=== PATIENT | female | born 1985 | race Caucasian/White ===

== ENCOUNTER 2018-12-17 16:32 | Emergency (ER) | payer OTHER ==
--- NOTE | 2018-12-17 19:08 | EDM.PDOC ---
ED HPI GENERAL MEDICAL PROBLEM - General Chief Complaint: Genitourinary Problem Stated Complaint: GENITOURINARY PROBLEM Time Seen by Provider: 12/17/18 17:36 Source of Information: Reports: Patient, RN Notes Reviewed - History of Present Illness INITIAL COMMENTS - FREE TEXT/NARRATIVE: 33-year-old female approximately 8 weeks has been sent here from [facility] for further evaluation of pelvic discomfort, pelvic discharge that started quite a few days ago. She was evaluated 2 days ago, diagnosed with UTI, started on Macrobid but not getting better. She returned to [facility] for follow-up today. Was found to have vaginal discharge, some visible lesions and pelvic adenopathy. No vaginal bleeding or spotting. She has had some dysuria and frequency. No fever, nausea, vomiting or severe back discomfort. Vaginal Pain Score (Numeric/FACES): 7 - Related Data Allergies Allergy/AdvReac Type Severity Reaction Status Date / Time No Known Allergies Allergy Verified 12/17/18 16:53 Home Meds: Home Meds 147/Iron/Folic Acid [Azesco Tablet] 1 tab PO DAILY 12/17/18 [History] cephALEXin [Keflex] 250 mg PO BID 12/17/18 [History] Past Medical History - Past Health History Medical/Surgical History: Denies Medical/Surgical History Social & Family History - Family History Family Medical History: Noncontributory - Tobacco Use Smoking Status *Q: Never Smoker Second Hand Smoke Exposure: No - Caffeine Use Caffeine Use: Reports: None - Recreational Drug Use Recreational Drug Use: No ED ROS GENERAL - Review of Systems Review Of Systems: See Below Constitutional: Denies: Fever, Chills HEENT: Reports: No Symptoms Respiratory: Denies: Shortness of Breath, Cough Cardiovascular: Denies: Chest Pain GI/Abdominal: Reports: Nausea. Denies: Abdominal Pain, Vomiting : Reports: Discharge, Dysuria, Frequency, Pain. Denies: Hematuria Musculoskeletal: Denies: Back Pain Skin: Denies: Rash Neurological: Reports: No Symptoms ED EXAM, RENAL/ - Physical Exam Exam: See Below General Appearance: Alert, No Apparent Distress Eye Exam: Bilateral Eye: PERRL Throat/Mouth: Normal Inspection, Normal Oropharynx Head: Atraumatic. No: Facial Swelling Neck: Supple, Full Range of Motion Respiratory/Chest: No Respiratory Distress, Lungs Clear, Normal Breath Sounds Cardiovascular: Regular Rate, Rhythm GI/Abdominal: Soft, Non-Tender Extremities: Normal Inspection, Normal Range of Motion. No: Pedal Edema, Leg Pain, Redness Neurological: Alert, Oriented, No Motor/Sensory Deficits Skin Exam: Warm, Dry, Normal Color Course - Vital Signs Last Recorded V/S: Last Vital Signs Temp 99.1 F 12/17/18 16:46 Pulse 85 12/17/18 16:46 Resp 16 12/17/18 16:46 BP 117/80 12/17/18 16:46 Pulse Ox 100 12/17/18 16:46 - Orders/Labs/Meds Labs: Laboratory Tests 12/17/18 12/17/18 12/17/18 Range/Units 17:50 17:50 18:11 Sodium 140 (136-145) mEq/L Potassium 3.7 (3.5-5.1) mEq/L Chloride 104 (98-107) mEq/L Carbon Dioxide 23 (21-32) mEq/L Anion Gap 16.7 H (5-15) BUN 9 (7-18) mg/dL Creatinine 0.7 (0.55-1.02) mg/dL Est Cr Clr Drug Dosing TNP Estimated GFR (MDRD) > 60 (>60) mL/min BUN/Creatinine Ratio 12.9 L (14-18) Glucose 138 H (74-106) mg/dL Calcium 8.6 (8.5-10.1) mg/dL Total Bilirubin 0.2 (0.2-1.0) mg/dL AST 11 L (15-37) U/L ALT 14 (14-59) U/L Alkaline Phosphatase 82 (46-116) U/L C-Reactive Protein 1.7 H* (<1.0) mg/dL Total Protein 7.1 (6.4-8.2) g/dl Albumin 3.2 L (3.4-5.0) g/dl Globulin 3.9 gm/dL Albumin/Globulin Ratio 0.8 L (1-2) Urine Color Light yellow (Yellow) Urine Appearance Clear (Clear) Urine pH 6.0 (5.0-8.0) Ur Specific [place] 1.015 (1.005-1.030) Urine Protein Negative (Negative) Urine Glucose (UA) Negative (Negative) Urine Ketones Negative (Negative) Urine Occult Blood Trace-lysed H (Negative) Urine Nitrite Negative (Negative) Urine Bilirubin Negative (Negative) Urine Urobilinogen 0.2 (0.2-1.0) Ur Leukocyte Esterase 2+ H (Negative) Urine RBC 5-10 H (0-5) /hpf Urine WBC 30-40 H (0-5) /hpf Ur Squamous Epith Cells 5-10 H (0-5) /hpf Urine Bacteria Few (FEW) /hpf Urine Mucus Not seen (FEW) /hpf - Re-Assessments/Exams Free Text/Narrative Re-Assessment/Exam: 12/17/18 19:[address] Medrano. Her Ua this evening is very strongly positive for UTI. WBC at clinic 9200. Testing for Chlamydia, GC, herpes and more pending per documentation from clinic. He is currently evaluating patient here in the ED and will provide a treatment plan based on his exam, further findings. 12/17/18.. 20:40 Dr Medrano has related that her lesions strongly look like herpes, current UA very suggestive for UTI, he is going to prescribe appropriate meds. Urine culture ordered. Departure - Departure Time of Disposition: 19:59 Disposition: Home, Self-Care 01 Condition: Fair Clinical Impression: UTI, Urinary tract infectious disease, Herpes genitalia - Discharge Information Instructions: Urinary Tract Infection, Adult, Genital Herpes Referrals: Ambar Taylor MD [Primary Care Provider] - Forms: ED Department Discharge Additional Instructions: Take medications as prescribed. These were sent to [facility] in [place]. Return to ER or follow-up OBGYN if you experience worsening symptoms.
--- NOTE | 2018-12-17 20:45 | PCM.CONS ---
H&P History of Present Illness - General Date of Service: 12/17/18 Admit Problem/Dx: 1. Genital lesions 2. First trimester Source of Information: Patient History Limitations: Reports: No Limitations - History of Present Illness Initial Comments - Free Text/Narative: Renata is a 33-year-old 3 now para 1103 white female who is seen in emergency room after referral by a PA at [facility] for evaluation and recommendations concerning vaginal discharge and vaginal/vulvar lesions. Patient reports her symptomatology started approximately a week ago when she felt swollen glands and symptoms of a yeast infection. East infection symptoms were increased vaginal discharge and moistness in the area of the vulva. Proxy 4 days ago painful sores appeared on the vulva and patient noted swollen glands in the area of her inguinal region. She also noticed frequency and dysuria. Last symptoms of nausea but no emesis and breast tenderness. 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 Duration 3-5 days. No control being used at time conception. This places her at 7 and 57 weeks gestational age with final KAROL of 07/31/2019. She is not had any previous obstetric evaluation with this . She has not had any ultrasounds with this . She's had 2 vaginal deliveries first was a female now age 6 and then she had twin boys now age 4. Allergies none Medications: 1. vitamins daily 2. Macrobid 1 by mouth twice a day for urinary tract infection diagnosed at walk -in clinic at [place] 2 days ago. Past medical history: 1. Vaginal delivery 2 with one being a set of twins 2. HEELP syndrome with first Past surgical history: Unremarkable Family history. Mother and father are alive. Father has had prostate cancer. One sister and brother alive and well. All grandparents are . One grandfather had colon cancer. No anesthesia, bleeding, blood clotting or -related problems noted. Social history: Patient is . She lives in [place], [place]. 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 She does not use any significant loss of alcohol, drugs or tobacco. Review of systems: Patient is to maintain concerns. One is lesions in the area of the vulva/vagina and the others vaginal discharge. In addition that she does report she is . Skin: Negative Lungs: No infectious symptoms or shortness of breath Cardiovascular: No chest pain or exercise intolerance Breasts: Breast tenderness associated with . GI: Negative : As per history of present illness Musculoskeletal: Negative Neurological: Negative In general the patient is well-developed, well-nourished, pleasant female of stated age in no acute distress. Skin is warm dry without lesions. HEENT, neck and back within normal limits. Lungs are clear with good breath sounds in all lung hunt. Cardiovascular exam shows regular and rhythm without murmurs. Breasts exam deferred as patient has no significant symptoms referable to this area Abdomen is flat, soft, nontender without masses or organomegaly. Positive bowel sounds are noted. Patient does have bilateral inguinal lymphadenopathy. Lymph nodes are enlarged and are very tender with palpation. Genital per speculum and bimanual shows very moist epithelium involving the labia minora and majora. Patient has many excoriated, umbilicated lesions especially on the right vulvar area involving the labia majora labia minora, also the perineal body and the perirectal area. Findings are most probably consistent with primary HSV infection. Swab of the lesions was obtained for HSV evaluation. A speculum exam shows cervix to be closed. There is essentially normal-appearing secretions in the vagina. Bimanual exam shows uterus to be approximately 8 weeks size. Previously GC, Chlamydia, wet prep were performed at [facility] Extremities and neurological exam are grossly within normal limits. Vaginal Pain Score (Numeric/FACES): 7 - Related Data Allergies/Adverse Reactions: Allergies Allergy/AdvReac Type Severity Reaction Status Date / Time No Known Allergies Allergy Verified 12/17/18 16:53 Home Medications: Home Meds 147/Iron/Folic Acid [Azesco Tablet] 1 tab PO DAILY 12/17/18 [History] cephALEXin [Keflex] 250 mg PO BID 12/17/18 [History] Past Medical History - Past Health History Medical/Surgical History: Denies Medical/Surgical History Social & Family History - Family History Family Medical History: Noncontributory - Tobacco Use Smoking Status *Q: Never Smoker Second Hand Smoke Exposure: No - Caffeine Use Caffeine Use: Reports: None - Recreational Drug Use Recreational Drug Use: No H&P Review of Systems - Review of Systems: Review Of Systems: See Below Exam - Exam Exam: See Below - Vital Signs Vital Signs: Last Vital Signs Temp 37.3 C 12/17/18 16:46 Pulse 85 12/17/18 16:46 Resp 16 12/17/18 16:46 BP 117/80 12/17/18 16:46 Pulse Ox 100 12/17/18 16:46 - Patient Data Lab Results Last 24 hrs: Laboratory Results - last 24 hr 12/17/18 12/17/18 12/17/18 Range/Units 17:50 17:50 18:11 Sodium 140 (136-145) mEq/L Potassium 3.7 (3.5-5.1) mEq/L Chloride 104 (98-107) mEq/L Carbon Dioxide 23 (21-32) mEq/L Anion Gap 16.7 H (5-15) BUN 9 (7-18) mg/dL Creatinine 0.7 (0.55-1.02) mg/dL Est Cr Clr Drug Dosing TNP Estimated GFR (MDRD) > 60 (>60) mL/min BUN/Creatinine Ratio 12.9 L (14-18) Glucose 138 H (74-106) mg/dL Calcium 8.6 (8.5-10.1) mg/dL Total Bilirubin 0.2 (0.2-1.0) mg/dL AST 11 L (15-37) U/L ALT 14 (14-59) U/L Alkaline Phosphatase 82 (46-116) U/L C-Reactive Protein 1.7 H* (<1.0) mg/dL Total Protein 7.1 (6.4-8.2) g/dl Albumin 3.2 L (3.4-5.0) g/dl Globulin 3.9 gm/dL Albumin/Globulin Ratio 0.8 L (1-2) Urine Color Light yellow (Yellow) Urine Appearance Clear (Clear) Urine pH 6.0 (5.0-8.0) Ur Specific [place] 1.015 (1.005-1.030) Urine Protein Negative (Negative) Urine Glucose (UA) Negative (Negative) Urine Ketones Negative (Negative) Urine Occult Blood Trace-lysed H (Negative) Urine Nitrite Negative (Negative) Urine Bilirubin Negative (Negative) Urine Urobilinogen 0.2 (0.2-1.0) Ur Leukocyte Esterase 2+ H (Negative) Urine RBC 5-10 H (0-5) /hpf Urine WBC 30-40 H (0-5) /hpf Ur Squamous Epith Cells 5-10 H (0-5) /hpf Urine Bacteria Few (FEW) /hpf Urine Mucus Not seen (FEW) /hpf Result Diagrams: 12/17/18 17:50 Consult PN Assessment/Plan Problem List Initiated/Reviewed/Updated: Yes My Orders Last 24 Hours: My Active Orders 12/17/18 19:55 CULTURE HERPES SIMPLEX VIRUS [MREF] Routine Assessment: 1. 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 Culture is pending 2. Urinary tract infectionno improvement urinalysis in the last 2 days despite Macrobid therapy 3. Multiple STI tests pending. 4. Reported intrauterine , not confirmed at this time. [place] to be 8-9 weeks gestation by certain LMP 5. History of HEELP syndrome with first . History of twins with second . Plan: 1. Acyclovir 400 mg by mouth 3 times a day 7 days. Quantity 21 refill 2 2. Lidocaine 5% gel reapplied up to every 4 hours when necessary for pain 3. Cephalexin 250 mg by mouth Q 6hours 7 days. Quantity 28, refill 1 4. Continue taking ends 5. Return to clinic in 2 days for follow-up and for transvaginal ultrasound to evaluate and confirm intrauterine presence and viability of 6. HSV culture pending 7. Urine culture pending [facility]. [facility] [place] [facility]
== END 2018-12-17 20:55 | disposition home or self-care (01) ==
LOC: JD.ED 16:32
DX: O23.41 Unspecified infection of urinary tract in pregnancy, first trimester (principal); O98.311 Other infections with a predominantly sexual mode of transmission complicating pregnancy, first trimester; A60.00 Herpesviral infection of urogenital system, unspecified; Z3A.08 8 weeks gestation of pregnancy
CPT/HCPCS: 36415; 80053; 81001; 86140; 87086; 87801; 99283; 99284

== ENCOUNTER 2019-07-23 06:29 | Inpatient (IN) | payer OTHER ==
[2019-07-24] MEDS ORDERED: Nalbuphine 10 MG/ML Syringe IVPUSH PRN (07:48)
[2019-07-24] MEDS ORDERED: Sodium Chloride 0.9% 10 ML Syringe FLUSH PRN (07:48)
[2019-07-24] MEDS ORDERED: Ondansetron 4 MG/2 ML SDV IVPUSH PRN ×2 (07:48→08:00)
[2019-07-24] MEDS ORDERED: ePHEDrine 50 MG/ML SDV IVPUSH PRN (08:00)
[2019-07-24] MEDS ORDERED: Bupivacaine/fentaNYL/NS 100 ML Bag EPIDUR SCH (08:00)
[2019-07-24] MEDS ORDERED: Phenylephrine 1 MG in Sodium Chloride 0.9% 10 ML IV SCH (08:00)
[2019-07-24] MEDS ORDERED: fentaNYL 100 MCG/2 ML SDV EPIDUR PRN (08:00)
[2019-07-24] MEDS ORDERED: Oxytocin/Lactated Ringers 10 UNIT/1,000 ML BAG IV SCH ×3 (08:00→18:12)
--- NOTE | 2019-07-24 08:03 | PCM.PREANE ---
Preanesthetic Assessment - Procedure Proposed Procedure: Epidural - Anesthesia/Transfusion/Family Hx Anesthesia History: Prior Anesthesia Without Reaction Family History of Anesthesia Reaction: No Transfusion History: No Prior Transfusion(s) Intubation History: Unknown - Review of Systems General: No Symptoms Pulmonary: No Symptoms Cardiovascular: No Symptoms Gastrointestinal: No Symptoms Neurological: No Symptoms Other: Reports: Easy Bruising - Physical Assessment NPO Status Date: 07/24/19 NPO Status Time: 09:00 Vital Signs: HR: 123 B/P: 126/78 Resp: 20 Sat: 99 Temp:98.4 Height: 1.68 m Weight: 91.172 kg ASA Class: 2 Mental Status: Alert & Oriented x3 Airway Class: Mallampati = 2 Dentition: Reports: Normal Dentition, Caries Thyro-Mental Finger Breadths: 3 Mouth Opening Finger Breadths: 3 ROM/Head Extension: Full Lungs: Clear to Auscultation, Normal Respiratory Effort Cardiovascular: Regular Rate, Regular Rhythm, No Murmurs - Lab Values: All labs reviewed and noted and within acceptable ranges to proceed with epidural. - Allergies Allergies/Adverse Reactions: Allergies Allergy/AdvReac Type Severity Reaction Status Date / Time No Known Allergies Allergy Verified 07/24/19 07:59 - Anesthesia Plan Pre-Op Medication Ordered: None - Acknowledgements Anesthesia Type Planned: Epidural Pt an Appropriate Candidate for the Planned Anesthesia: Yes Alternatives and Risks of Anesthesia Discussed w Pt/Guardian: Yes Pt/Guardian Understands and Agrees with Anesthesia Plan: Yes PreAnesthesia Questionnaire - Past Health History Medical/Surgical History: Denies Medical/Surgical History - HOME MEDS Home Medications: Home Meds 147/Iron/Folic Acid [Azesco Tablet] 1 tab PO DAILY 12/17/18 [History] Acyclovir 400 mg PO TID 07/24/19 [History] Aspirin 81 mg PO DAILY 07/24/19 [History] Calcium Carbonate [Calcium] 500 mg PO DAILY 07/24/19 [History] Docusate Sodium 100 mg PO ASDIRECTED PRN 07/24/19 [History] Ferrous Sulfate [Iron] 325 mg PO DAILY 07/24/19 [History] - CURRENT (IN HOUSE) MEDS Current Meds: Current Medications Ephedrine Sulfate (Ephedrine Sulfate) 5 mg IVPUSH ASDIRECTED PRN PRN Reason: Hypotension Fentanyl (Sublimaze) 100 mcg EPIDUR Q3H PRN PRN Reason: Pain Fentanyl/Bupivacaine HCl (Fentanyl/Bupivacaine/Ns 2 Mcg-0.125% 100 Ml) 100 ml EPIDUR ASDIRECTED RADHA Lactated Ringer's (Ringers, Lactated) 1,000 mls @ 100 mls/hr IV ASDIRECTED RADHA Oxytocin/Lactated Ringer's (Pitocin In Lr 10 Units/1,000 Ml) 10 unit in 1,000 mls @ 12 mls/hr IV TITRATE RADHA; Protocol Oxytocin/Lactated Ringer's (Pitocin In Lr 10 Units/1,000 Ml) 10 unit in 1,000 mls @ 100 mls/hr IV .CONTINUOUS RADHA Phenylephrine HCl 1 mg/ Sodium (Chloride) 10.1 mls @ 1 mls/sec IV TITRATE RADHA; Protocol Nalbuphine HCl (Nubain) 10 mg IVPUSH Q2H PRN PRN Reason: Pain Ondansetron HCl (Zofran) 4 mg IVPUSH Q4H PRN PRN Reason: Nausea/Vomiting Ondansetron HCl (Zofran) 4 mg IVPUSH ONETIME PRN PRN Reason: Nausea/Vomiting Sodium Chloride (Saline Flush) 10 ml FLUSH ASDIRECTED PRN PRN Reason: Keep Vein Open
[2019-07-24] MEDS: Lactated Ringers 1,000 ML IV SCH ×4 (08:11→13:37)
--- NOTE | 2019-07-24 08:59 | PCM.LDHP ---
L&D History of Present Illness - General Date of Service: 07/24/19 Admit Problem/Dx: Patient Status Order with Admit Dx/Problem 07/24/19 07:48 Patient Status [ADT] Routine Admission Diagnosis/Problem Admission Diagnosis/Problem Source of Information: Patient History Limitations: Reports: No Limitations - History of Present Illness Introduction:: Renata Rome is a 34 year old -0-0-3 (1 set of twins) at 39 weeks 0 days by LMP consistent with 8-week ultrasound who presents for induction of labor. She reports that she has been feeling good movement. She denies any leaking of fluid or vaginal bleeding. Reports that she has had some occasional John Grullon contractions that the episodes may last up to 30 minutes if she is more active and moving around. She denies any significant contractions outside of increased activity. Associated Symptoms: Denies: vaginal bleeding, vaginal discharge, vaginal fluid Present Illness Comments:: Renata Rome is a 34-year-old -0-0-3 (1 set of twins female at 39 weeks 0 days by LMP consistent with 8-week ultrasound. She has had routine care with Dr. Medrano since 8 weeks gestational age. Her has been overall uncomplicated. She has a history of HELLP syndrome and was started on aspirin 81 mg daily at 13 weeks gestational age. She has a history of genital HSV and was started on acyclovir at 36 weeks gestational age. She received influenza vaccine on 01/22/2019. She had a low-lying placenta on her initial ultrasound but this resolved when it was repeated 6 weeks later. Her is complicated by: * History of HELLP syndrome, patient started on aspirin 81 mg daily at 13 weeks gestational age * History of genital HSV, patient started on acyclovir 400 mg 3 times daily at 36 weeks gestational age [employer] history: G1: 09/09/2014, , female infant, 6 pounds 12 ounces, complicated by HELLP syndrome G2: 07/04/2016, twin a , male , 5 pounds 8 ounces Twin B , male , 5 pounds 3 ounces G3: Current labs Blood type: O+ Antibody screen: Negative First trimester hematocrit/hemoglobin: 35.4%/12.0 on 01/22/2019 Platelets: 179 on 01/22/2019 Urine culture: Mixed azul suggestive of contamination Rubella status: Immune Hepatitis B surface antigen: Negative RPR: Negative HIV: Negative Gonorrhea: Negative Chlamydia: Negative Anatomy ultrasound: Normal anatomy, posterior placenta, low-lying initially but resolved on repeat exam, 27th percentile on most recent ultrasound One hour glucose tolerance test: 105 Second trimester hematocrit/hemoglobin: 35.0%/11.2 on 04/21/2019 Platelets: 177 on 04/21/2019 Third trimester hematocrit/hemoglobin: 38.5%/12.5 on 06/30/2019 Platelets: 152 on 06/30/2019 GBS status: Negative - Related Data Allergies/Adverse Reactions: Allergies Allergy/AdvReac Type Severity Reaction Status Date / Time No Known Allergies Allergy Verified 07/24/19 07:59 Home Medications: Home Meds 147/Iron/Folic Acid [Azesco Tablet] 1 tab PO DAILY 12/17/18 [History] Acyclovir 400 mg PO TID 07/24/19 [History] Aspirin 81 mg PO DAILY 07/24/19 [History] Calcium Carbonate [Calcium] 500 mg PO DAILY 07/24/19 [History] Docusate Sodium 100 mg PO ASDIRECTED PRN 07/24/19 [History] Ferrous Sulfate [Iron] 325 mg PO DAILY 07/24/19 [History] Past Medical History - Past Health History Medical/Surgical History: Denies Medical/Surgical History [employer] History: Reports: , Other (See Below) (History of HELLP syndrome in first ) : 3 Para: 2 (1 set of twins) Psychiatric History: Reports: Depression ( depression after twins in 2017) - Infectious Disease History Infectious Disease History: Reports: Herpes Social & Family History - Family History Family Medical History: Noncontributory - Tobacco Use Smoking Status *Q: Never Smoker Tobacco Use Within Last Twelve Months: No - Tobacco Core Measures Tobacco Use/Smoking Within Last 30 Days: No Smokeless Tobacco Use in Last 30 Days: No - Caffeine Use Caffeine Use: Reports: None - Alcohol Use Alcohol Use History: No - Recreational Drug Use Recreational Drug Use: No Drug Use in Last 12 Months: No - Living Situation & Occupation Living situation: Reports: , with Spouse, with Family H&P Review of Systems - Review of Systems: Review Of Systems: See Below General: Denies: Fever, Chills, Malaise, Weakness, Fatigue HEENT: Denies: Headaches, Rhinitis, Post Nasal Drip, Sinus Congestion, Sore Throat, Visual Changes Pulmonary: Denies: Shortness of Breath, Wheezing, Pleuritic Chest Pain, Cough Cardiovascular: Denies: Chest Pain, Palpitations, Dyspnea on Exertion Gastrointestinal: Reports: Constipation. Denies: Abdominal Pain, Diarrhea, Nausea, Vomiting Genitourinary: Denies: Dysuria, Frequency, Burning, Pain, Urgency Musculoskeletal: Reports: Back Pain (and hip pain of ) Skin: Denies: Rash, Lesions Psychiatric: Denies: Depression, Anxiety Neurological: Denies: Headache L&D Exam - Exam Exam: See Below - Vital Signs Weight: 91.172 kg - OB Specific Contraction Duration (sec): 45-60 Contraction Frequency (min): 2-4 Contraction Intensity: Moderate Movement: Active Heart Tones: Present Heart Tones per Min: 150 (+15 x 15 accelerations, intermittent variable decelerations) Heart Rate (FHR) Variability: Moderate (6-25 bmp) Presentation: Vertex Estimated Weight: 6.5-7 pounds by Bradley - Messina Score Messina Score Cervix Position: Anterior Messina Score Consistency: Soft Messina Score Effacement: >80% (80%) Messina Score Dilation: 3-4 cm (3 cm) Messina Score Infant's Station: -3 Messina Score Total: 9 - Exam General: Alert, Oriented HEENT: Conjunctiva Clear, EOMI Neck: Supple, Trachea Midline Lungs: Clear to Auscultation, Normal Respiratory Effort Cardiovascular: Regular Rate, Regular Rhythm GI/Abdominal Exam: Soft, Non-Tender, No Distention, Other (Gravid). No: Guarding, Rigid, Rebound Genitourinary: Normal external exam, Other (Artificial rupture membranes performed with [place] with return of clear fluid. Mother and infant tolerated well.) Extremities: Non-Tender, No Pedal Edema Skin: Warm, Dry, Intact Psychiatric: Alert, Normal Affect, Normal Mood - Patient Data Lab Results Last 24 hrs: Laboratory Results - last 24 hr 07/24/19 Range/Units 08:20 WBC 11.81 H (3.98-10.04) K/mm3 RBC 4.10 (3.98-5.22) M/mm3 Hgb 13.1 (11.2-15.7) gm/dl Hct 39.3 (34.1-44.9) % MCV 95.9 H (79.4-94.8) fl MCH 32.0 (25.6-32.2) pg MCHC 33.3 (32.2-35.5) g/dl RDW Std Deviation 50.1 H (36.4-46.3) fL Plt Count 134 L (182-369) K/mm3 MPV 10.8 (9.4-12.3) fl Neut % (Auto) 82.8 H (34.0-71.1) % Lymph % (Auto) 9.2 L (19.3-51.7) % [place] % (Auto) 7.1 (4.7-12.5) % Eos % (Auto) 0.3 L (0.7-5.8) Baso % (Auto) 0.1 (0.1-1.2) % Neut # (Auto) 9.78 H (1.56-6.13) K/mm3 Lymph # (Auto) 1.09 L (1.18-3.74) K/mm3 [place] # (Auto) 0.84 H (0.24-0.36) K/mm3 Eos # (Auto) 0.03 L (0.04-0.36) K/mm3 Baso # (Auto) 0.01 (0.01-0.08) K/mm3 Manual Slide Review Abnormal smear Result Diagrams: 07/24/19 08:20 - Problem List (1) 39 weeks gestation of SNOMED Code(s): 55650060 ICD Code: Z3A.39 - 39 WEEKS GESTATION OF Status: Acute Current Visit: Yes (2) History of herpes genitalis SNOMED Code(s): 087008114 ICD Code: Z86.19 - PERSONAL HISTORY OF OTHER INFECTIOUS AND PARASITIC DISEASES Status: Acute Current Visit: Yes (3) History of HELLP syndrome, currently SNOMED Code(s): 334685982, 157774453 ICD Code: O09.299 - SUPRVSN OF PREG W POOR REPRODCTV OR OBSTET HISTORY, UNSP TRI Status: Acute Current Visit: Yes Problem List Initiated/Reviewed/Updated: Yes Orders Last 24hrs: Active Orders 24 hr Category Date Time Status Patient Status [ADT] Routine ADT 07/24/19 07:48 Active Activity as Tolerated [RC] PFP Care 07/24/19 07:48 Active Communication Order [RC] ASDIRECTED Care 07/24/19 07:48 Active Heart Tones [RC] ASDIRECTED Care 07/24/19 07:48 Active Non Stress Test [RC] PER UNIT ROUTINE Care 07/24/19 07:48 Active Notify Provider [RC] ASDIRECTED Care 07/24/19 08:00 Active Notify Provider [RC] PFP Care 07/24/19 07:48 Active Notify Provider [RC] PRN Care 07/24/19 07:48 Active Oxygen Therapy [RC] ASDIRECTED Care 07/24/19 08:00 Active Peripheral IV Care [RC] . DIRECTED Care 07/24/19 07:48 Active Pulse Oximetry [RC] ASDIRECTED Care 07/24/19 08:00 Active Pump Management, Intrathecal [RC] ASDIRECTED Care 07/24/19 07:51 Active Vital Signs [RC] PER UNIT ROUTINE Care 07/24/19 07:48 Active Regular Diet [DIET] Diet 07/24/19 Breakfast Active RAPID PLASMA REAGIN,RPR [CHEM] Routine Lab 07/24/19 08:20 Received TYPE AND SCREEN [BBK] Stat Lab 07/24/19 08:20 Received Bupivacaine/fentaNYL/NS [fentaNYL/Bupivacaine/NS 2 MCG- Med 07/24/19 08:00 Active 0.125% 100 ML] 100 ml EPIDUR ASDIRECTED Lactated Ringers [Ringers, Lactated] 1,000 ml Med 07/24/19 08:00 Active IV ASDIRECTED Nalbuphine [Nubain] Med 07/24/19 07:48 Active 10 mg IVPUSH Q2H PRN Ondansetron [Zofran] Med 07/24/19 08:00 Active 4 mg IVPUSH ONETIME PRN Ondansetron [Zofran] Med 07/24/19 07:48 Active 4 mg IVPUSH Q4H PRN Oxytocin/Lactated Ringers [Pitocin in LR 10 Units/1,000 Med 07/24/19 08:00 Active ML] 10 unit in 1,000 ml IV .CONTINUOUS Oxytocin/Lactated Ringers [Pitocin in LR 10 Units/1,000 Med 07/24/19 08:00 Active ML] 10 unit in 1,000 ml IV TITRATE Phenylephrine [Giorgio-Synephrine] 1 mg Med 07/24/19 08:00 Active Sodium Chloride 0.9% [Normal Saline] 10 ml IV TITRATE Sodium Chloride 0.9% [Saline Flush] Med 07/24/19 07:48 Active 10 ml FLUSH ASDIRECTED PRN ePHEDrine [ePHEDrine sulfate] Med 07/24/19 08:00 Active 5 mg IVPUSH ASDIRECTED PRN fentaNYL [Sublimaze] Med 07/24/19 08:00 Active 100 mcg EPIDUR Q3H PRN Electronic Heart Tones Ext w TOCO [WOMSER] Oth 07/24/19 07:48 Ordered Routine Electronic Heart Tones Internal [WOMSER] Per Unit Oth 07/24/19 07:48 Ordered Routine Peripheral IV Insertion Adult [OM.PC] Routine Oth 07/24/19 07:48 Ordered Resuscitation Status Routine Resus Stat 07/24/19 07:48 Ordered Medication Orders Ephedrine Sulfate (Ephedrine Sulfate) 5 mg IVPUSH ASDIRECTED PRN PRN Reason: Hypotension Fentanyl (Sublimaze) 100 mcg EPIDUR Q3H PRN PRN Reason: Pain Fentanyl/Bupivacaine HCl (Fentanyl/Bupivacaine/Ns 2 Mcg-0.125% 100 Ml) 100 ml EPIDUR ASDIRECTED RADHA Lactated Ringer's (Ringers, Lactated) 1,000 mls @ 100 mls/hr IV ASDIRECTED RADHA Last Admin: 07/24/19 08:11 Dose: 100 mls/hr Oxytocin/Lactated Ringer's (Pitocin In Lr 10 Units/1,000 Ml) 10 unit in 1,000 mls @ 12 mls/hr IV TITRATE RADHA; Protocol Last Admin: 07/24/19 08:15 Dose: 2 munits/min, 12 mls/hr Oxytocin/Lactated Ringer's (Pitocin In Lr 10 Units/1,000 Ml) 10 unit in 1,000 mls @ 100 mls/hr IV .CONTINUOUS RADHA Phenylephrine HCl 1 mg/ Sodium (Chloride) 10.1 mls @ 1 mls/sec IV TITRATE RADHA; Protocol Nalbuphine HCl (Nubain) 10 mg IVPUSH Q2H PRN PRN Reason: Pain Ondansetron HCl (Zofran) 4 mg IVPUSH Q4H PRN PRN Reason: Nausea/Vomiting Ondansetron HCl (Zofran) 4 mg IVPUSH ONETIME PRN PRN Reason: Nausea/Vomiting Sodium Chloride (Saline Flush) 10 ml FLUSH ASDIRECTED PRN PRN Reason: Keep Vein Open Assessment/Plan Comment:: Refer to observation for elective induction of labor Continue Pitocin for induction of labor Continuous monitoring Place IV and have Lactated Ringer's at 125 ml/hr May have small amounts of regular diet Activity as tolerated May have epidural as desired Plans to breast-feed after delivery Artificial rupture membranes with return of clear fluid performed. Mother and tolerated procedure without difficulty Anticipate vaginal delivery unless otherwise indicated Gilson Abarca MD 10:59 AM 07/24/2019
--- NOTE | 2019-07-24 17:33 | PCM.DEL ---
L & D Note - General Info Date of Service: 07/24/19 Mother's Due Date: 07/31/19 - Delivery Note Labor: Induced by ARM, Induced by Oxytocin Delivery Outcome: Livebirth Infant Delivery Method: Spontaneous Vaginal Delivery-Single Presentation: Right Occiput Anterior (SINAN) Nuchal Cord: None Prep: Povidone-Iodine (Betadine Anesthesia Type: Epidural Amniotic Fluid Description: Clear Episiotomy Type: None Laceration: 3rd Degree (midline), Perineal Suture type: Vicryl Suture size: 2-0 Placenta: Intact, Spontaneous Cord: 3 Vessels Estimated Blood Loss: 300 Resuscitation Needed: No : Bulb Syringe, Stimulated, Warmed, Warmer Used Provider: Gilson Abarca Score 1 min: 8 Score 5 min: 9 Post Delivery Events: Shoulder Dystocia (Relieved with Chele maneuver and Dave corkscrew maneuver) Second Stage Interventions: Reports: Pushing Effectively, Pushing, Stirrups/Leg Supports Delivery Comments (Free Text/Narrative):: Stage I: Renata Rome was admitted for elective induction of labor. On admission her cervix was dilated to 3 cm. She was GBS negative. She was started on Pitocin for induction of labor. She had artificial rupture membranes with return of clear fluid. She was given an epidural for anesthesia. She continued to progress throughout the day until she got to complete and pushing. Stage II: Patient had delivery of the head and with gentle downward traction attempted to deliver the shoulders but was unsuccessful. Patient was placed in deep Chele position and attempted to deliver the anterior shoulder again but was unsuccessful. I then placed my hand in the posterior vagina and with gentle pressure on the posterior shoulder as well as on the anterior shoulder the infant was rotated in a counterclockwise maneuver using Dave screw maneuver. The anterior shoulder was then able to be delivered with little difficulty. The shoulder dystocia lasted approximately 30 seconds. The right shoulder was the anterior shoulder behind the pubic symphysis. was moving all extremities without difficulty after delivery. On 07/24/2019 she had a normal vaginal delivery of a live male infant at 16:30. Apgars of 8 & 9. Weight of 4130 g (9 lbs 1.7 oz). Length of 21 inches. There was no nuchal cord. Infant was delivered in SINAN position. The cord was doubly clamped and cut by father the . was placed on mother's abdomen. Stage III: She had a spontaneous delivery of an intact placenta in Garcia presentation. Three vessel cord. She was given pitocin and fundal massage. She had a third degree laceration of the perineum with complete tear of the external anal sphincter muscle. The rectal mucosa was intact and the tear on the perineum did not go down to the rectum. The muscle capsule around the external anal sphincter was then grasped using Allis clamps and the muscle capsule was repaired using 2-0 Vicryl repeat. The muscle capsule was repaired using [id number] sutures in the posterior quadrant, then the inferior quadrant, then the superior quadrant and then in the anterior quadrant. At this time the muscle capsule was intact and felt to be fully repaired. The remainder of the laceration was then repaired using 3-0 Vicryl. Mom and baby were stable to recovery. EBL of 300 mL. Gilson Abarca MD 5:43 PM 07/24/2019 Induction Criteria - Messina Score Messina Score Dilation: 3-4 cm Messina Score Effacement: >80% Messina Score Infant's Station: -3 Messina Score Consistency: Soft Messina Score Cervix Position: Anterior Messina Score Total: 9 Messina Score Presenting Part: Reports: Cephalic - Induction Gestational Age >/= 39 wks: Yes Estimated Pelvis: Reports: Adequate Reassuring Monitoring Strip: Yes Absence of Tachy Systole: Yes - Augmentation Estimated Pelvis: Reports: Adequate Weight Estimated:: Reports: AGA Reassuring Monitoring Strip: Yes Absence of Tachy Systole: Yes - General Info Date of Service: 07/24/19 - Patient Data Vitals - Most Recent: Last Vital Signs Temp 36.9 C 07/24/19 07:48 Pulse 123 H 07/24/19 07:48 Resp 16 07/24/19 07:48 BP 126/78 07/24/19 07:48 Pulse Ox 97 07/24/19 07:48 Weight - Most Recent: 91.172 kg Lab Results Last 24 Hours: Laboratory Results - last 24 hr 07/24/19 07/24/19 Range/Units 08:20 08:20 WBC 11.81 H (3.98-10.04) K/mm3 RBC 4.10 (3.98-5.22) M/mm3 Hgb 13.1 (11.2-15.7) gm/dl Hct 39.3 (34.1-44.9) % MCV 95.9 H (79.4-94.8) fl MCH 32.0 (25.6-32.2) pg MCHC 33.3 (32.2-35.5) g/dl RDW Std Deviation 50.1 H (36.4-46.3) fL Plt Count 134 L (182-369) K/mm3 MPV 10.8 (9.4-12.3) fl Neut % (Auto) 82.8 H (34.0-71.1) % Lymph % (Auto) 9.2 L (19.3-51.7) % [place] % (Auto) 7.1 (4.7-12.5) % Eos % (Auto) 0.3 L (0.7-5.8) Baso % (Auto) 0.1 (0.1-1.2) % Neut # (Auto) 9.78 H (1.56-6.13) K/mm3 Lymph # (Auto) 1.09 L (1.18-3.74) K/mm3 [place] # (Auto) 0.84 H (0.24-0.36) K/mm3 Eos # (Auto) 0.03 L (0.04-0.36) K/mm3 Baso # (Auto) 0.01 (0.01-0.08) K/mm3 Manual Slide Review Abnormal smear Blood Type O POSITIVE Gel Antibody Screen Negative Med Orders - Current: Current Medications Ephedrine Sulfate (Ephedrine Sulfate) 5 mg IVPUSH ASDIRECTED PRN PRN Reason: Hypotension Fentanyl (Sublimaze) 100 mcg EPIDUR Q3H PRN PRN Reason: Pain Last Admin: 07/24/19 11:17 Dose: 100 mcg Fentanyl/Bupivacaine HCl (Fentanyl/Bupivacaine/Ns 2 Mcg-0.125% 100 Ml) 100 ml EPIDUR ASDIRECTED RADHA Last Admin: 07/24/19 11:18 Dose: 100 ml Lactated Ringer's (Ringers, Lactated) 1,000 mls @ 100 mls/hr IV ASDIRECTED RADHA Last Admin: 07/24/19 13:37 Dose: 100 mls/hr Oxytocin/Lactated Ringer's (Pitocin In Lr 10 Units/1,000 Ml) 10 unit in 1,000 mls @ 12 mls/hr IV TITRATE RADHA; Protocol Last Titration: 07/24/19 10:43 Dose: 6 munits/min, 36 mls/hr Oxytocin/Lactated Ringer's (Pitocin In Lr 10 Units/1,000 Ml) 10 unit in 1,000 mls @ 100 mls/hr IV .CONTINUOUS RADHA Phenylephrine HCl 1 mg/ Sodium (Chloride) 10.1 mls @ 1 mls/sec IV TITRATE RADHA; Protocol Nalbuphine HCl (Nubain) 10 mg IVPUSH Q2H PRN PRN Reason: Pain Ondansetron HCl (Zofran) 4 mg IVPUSH Q4H PRN PRN Reason: Nausea/Vomiting Ondansetron HCl (Zofran) 4 mg IVPUSH ONETIME PRN PRN Reason: Nausea/Vomiting Sodium Chloride (Saline Flush) 10 ml FLUSH ASDIRECTED PRN PRN Reason: Keep Vein Open - Problem List & Annotations (1) 39 weeks gestation of SNOMED Code(s): 36537170 Code(s): Z3A.39 - 39 WEEKS GESTATION OF Status: Acute Current Visit: Yes (2) History of herpes genitalis SNOMED Code(s): 454917455 Code(s): Z86.19 - PERSONAL HISTORY OF OTHER INFECTIOUS AND PARASITIC DISEASES Status: Acute Current Visit: Yes (3) History of HELLP syndrome, currently SNOMED Code(s): 319700592, 453794685 Code(s): O09.299 - SUPRVSN OF PREG W POOR REPRODCTV OR OBSTET HISTORY, UNSP TRI Status: Acute Current Visit: Yes (4) Vaginal delivery SNOMED Code(s): 143139929 Code(s): O80 - ENCOUNTER FOR FULL-TERM UNCOMPLICATED DELIVERY Status: Acute Current Visit: Yes (5) Shoulder dystocia during labor and delivery, delivered SNOMED Code(s): 253491296, 513207076 Code(s): O66.0 - OBSTRUCTED LABOR DUE TO SHOULDER DYSTOCIA Status: Acute Current Visit: Yes (6) Third degree perineal laceration during delivery SNOMED Code(s): 28917375, 635854184 Code(s): O70.20 - THIRD DEGREE PERINEAL LACERATION DURING DELIVERY, UNSP Status: Acute Current Visit: Yes - Problem List Review Problem List Initiated/Reviewed/Updated: Yes - My Orders Last 24 Hours: My Active Orders 07/24/19 07:48 Patient Status [ADT] Routine Activity as Tolerated [RC] PFP Communication Order [RC] ASDIRECTED Notify Provider [RC] PFP Notify Provider [RC] PRN Peripheral IV Care [RC] . DIRECTED Vital Signs [RC] PER UNIT ROUTINE Nalbuphine [Nubain] 10 mg IVPUSH Q2H PRN Ondansetron [Zofran] 4 mg IVPUSH Q4H PRN Sodium Chloride 0.9% [Saline Flush] 10 ml FLUSH ASDIRECTED PRN Electronic Heart Tones Ext w TOCO [WOMSER] Routine Electronic Heart Tones Internal [WOMSER] Per Unit Routine Peripheral IV Insertion Adult [OM.PC] Routine Resuscitation Status Routine 07/24/19 07:51 Pump Management, Intrathecal [RC] ASDIRECTED 07/24/19 08:00 Lactated Ringers [Ringers, Lactated] 1,000 ml IV ASDIRECTED Oxytocin/Lactated Ringers [Pitocin in LR 10 Units/1,000 ML] 10 unit in 1,000 ml IV .CONTINUOUS Oxytocin/Lactated Ringers [Pitocin in LR 10 Units/1,000 ML] 10 unit in 1,000 ml IV TITRATE 07/24/19 08:20 RAPID PLASMA REAGIN,RPR [CHEM] Routine 07/24/19 17:20 Patient Status Manage Transfer [TRANSFER] Routine 07/24/19 Breakfast Regular Diet [DIET] - Plan Plan:: Admit to inpatient following normal spontaneous vaginal delivery complicated by shoulder dystocia Continue Pitocin per unit protocol following delivery of placenta and lactated Ringer's until tolerating regular diet Regular diet Vitals per unit routine Ibuprofen and Tylenol for pain control Assist with breast-feeding as needed Continue to monitor lochia Start on milk of magnesia 30 mL nightly with possible twice daily as needed. Continue on Colace 100 mg twice daily Anticipate discharge home on day #1 Gilson Abarca MD 5:43 PM 07/24/2019
[2019-07-24] MEDS ORDERED: Acetaminophen 325 MG Tab PO PRN (18:12)
[2019-07-24] MEDS ORDERED: Hydrocortisone Acetate 25 MG Supp RECTAL PRN (18:12)
[2019-07-24] MEDS: Witch Hazel Medicated Pads 40/Jar TOP PRN (18:59)
[2019-07-24] MEDS: Benzocaine/Menthol 20%-0.5% Spray 56 GM Canister TOP PRN (18:59)
[2019-07-24] MEDS: Ibuprofen 600 MG Tab PO PRN (19:00)
[2019-07-24] MEDS: Docusate Sodium 100 MG Cap PO SCH (20:43)
[2019-07-24] MEDS: Magnesium Hydroxide 400 MG/5 ML Susp 30 ML Cup PO SCH (20:43)
[2019-07-24] MEDS: Calcium Carbonate 500 MG Tab.Chew PO PRN (21:05)
[2019-07-25] MEDS ORDERED: Bupivacaine 0.25% 10 ML SDV ONE
[2019-07-25] MEDS: Ibuprofen 600 MG Tab PO PRN ×2 (01:10→10:37)
[2019-07-25] MEDS: Calcium Carbonate 500 MG Tab.Chew PO PRN (03:33)
[2019-07-25] MEDS ORDERED: Diphtheria,Pertussis(Acell),Tetanus Vaccine 0.5 ML Syringe IM ONE (04:19)
--- NOTE | 2019-07-25 07:40 | PCM48HPAN ---
Post Anesthesia Note - EVALUATION WITHIN 48HRS OF ANESTHETIC Vital Signs in Normal Range: Yes Patient Participated in Evaluation: Yes Respiratory Function Stable: Yes Airway Patent: Yes Cardiovascular Function Stable: Yes Hydration Status Stable: Yes Pain Control Satisfactory: Yes Nausea and Vomiting Control Satisfactory: Yes Mental Status Recovered: Yes Vital Signs: Last Vital Signs Temp 98.1 F 07/25/19 03:31 Pulse 70 07/25/19 03:31 Resp 16 07/25/19 03:31 BP 120/81 07/25/19 03:31 Pulse Ox 98 07/25/19 03:31
[2019-07-25] MEDS: Docusate Sodium 100 MG Cap PO SCH (08:24)
[2019-07-25] MEDS ORDERED: Prenatal Multivitamin with Calcium/Folic Acid/Iron Tab PO SCH (09:00)
--- NOTE | 2019-07-25 09:00 | PCM.SN.2 ---
- Free Text/Narrative Note: Post Progress Note PPD #1 Subjective: Doing well overall. Ambulating without difficulty. Lochia minimal. Voiding without difficulty. Tolerating regular diet without nausea or vomiting this morning. Pain controlled with oral medications. Reports that she is feeling some pain in her low back and pelvis as well as mild to moderate cramping in her uterus. Breast-feeding with pumping afterwards as well as formula supplementation with minimal difficulty. She reports that she feels like she is not producing large amounts of milk at this time. Objective: Vitals: Vital Signs - 24 hr 07/24/19 07/25/19 20:42 03:31 Temperature 36.9 C 36.7 C Pulse, 93 70 Peripheral Respiratory 16 16 Rate Blood Pressure 106/63 120/81 O2 Sat by Pulse 99 98 Oximetry Physical Exam General: Alert and oriented, no acute distress Lungs: Clear to auscultation bilaterally Heart: Regular rate and rhythm Abdomen: Soft, minimal appropriate tenderness, non-distended, fundus midline, nontender, and 1 fingerbreadths below the umbilicus Extremities: Trace edema in bilateral lower extremities to her ankles ASSESSMENT: 34-year-old female -0-0-4 (1 set of twins) s/p normal vaginal delivery PPD #1, complicated by third-degree perineal laceration and shoulder dystocia with a history of HELLP syndrome and genital HSV PLAN: Doing well Breast-feeding with pumping afterwards as well as formula supplementation as needed with minimal difficulty. Assist as needed Reports that she has not had a bowel movement since delivery but is starting to feel some pressure sensation like she is going to have a bowel movement Lochia minimal. Continue to monitor for appropriate lochia. Continue routine care Anticipate discharge home today if is able to be discharged Gilson Abarca MD 8:59 AM 07/25/2019
--- NOTE | 2019-07-25 09:11 | PCM.DCSUM1 ---
Discharge Summary - Hospital Course Free Text/Narrative:: - General Info Date of Service: 07/24/19 Mother's Due Date: 07/31/19 - Delivery Note Labor: Induced by ARM, Induced by Oxytocin Delivery Outcome: Livebirth Delivery Method: Spontaneous Vaginal Delivery-Single Presentation: Right Occiput Anterior (SINAN) Nuchal Cord: None Prep: Povidone-Iodine (Betadine Anesthesia Type: Epidural Amniotic Fluid Description: Clear Episiotomy Type: None Laceration: 3rd Degree (midline), Perineal Suture type: Vicryl Suture size: 2-0 Placenta: Intact, Spontaneous Cord: 3 Vessels Estimated Blood Loss: 300 Resuscitation Needed: No [place]: Bulb Syringe, Stimulated, Warmed, Warmer Used Provider: Gilson Abarca Score 1 min: 8 Score 5 min: 9 Post Delivery Events: Shoulder Dystocia (Relieved with Chele maneuver and Dave corkscrew maneuver) Second Stage Interventions: Reports: Pushing Effectively, Pushing, Stirrups/Leg Supports Delivery Comments (Free Text/Narrative):: Stage I: Renata Rome was admitted for elective induction of labor. On admission her cervix was dilated to 3 cm. She was GBS negative. She was started on Pitocin for induction of labor. She had artificial rupture membranes with return of clear fluid. She was given an epidural for anesthesia. She continued to progress throughout the day until she got to complete and pushing. Stage II: Patient had delivery of the head and with gentle downward traction attempted to deliver the shoulders but was unsuccessful. Patient was placed in deep Chele position and attempted to deliver the anterior shoulder again but was unsuccessful. I then placed my hand in the posterior vagina and with gentle pressure on the posterior shoulder as well as on the anterior shoulder the infant was rotated in a counterclockwise maneuver using Dave screw maneuver. The anterior shoulder was then able to be delivered with little difficulty. The shoulder dystocia lasted approximately 30 seconds. The right shoulder was the anterior shoulder behind the pubic symphysis. was moving all extremities without difficulty after delivery. On 07/24/2019 she had a normal vaginal delivery of a live male at 16:30. Apgars of 8 & 9. Weight of 4130 g (9 lbs 1.7 oz). Length of 21 inches. There was no nuchal cord. was delivered in SINAN position. The cord was doubly clamped and cut by father the infant. was placed on mother's abdomen. Stage III: She had a spontaneous delivery of an intact placenta in Garcia presentation. Three vessel cord. She was given pitocin and fundal massage. She had a third degree laceration of the perineum with complete tear of the external anal sphincter muscle. The rectal mucosa was intact and the tear on the perineum did not go down to the rectum. The muscle capsule around the external anal sphincter was then grasped using Allis clamps and the muscle capsule was repaired using 2-0 Vicryl repeat. The muscle capsule was repaired using [id number] sutures in the posterior quadrant, then the inferior quadrant, then the superior quadrant and then in the anterior quadrant. At this time the muscle capsule was intact and felt to be fully repaired. The remainder of the laceration was then repaired using 3-0 Vicryl. Mom and baby were stable to recovery. EBL of 300 mL. HPI Initial Comments: - General Info Date of Service: 07/24/19 Mother's Due Date: 07/31/19 - Delivery Note Labor: Induced by ARM, Induced by Oxytocin Delivery Outcome: Livebirth Infant Delivery Method: Spontaneous Vaginal Delivery-Single Presentation: Right Occiput Anterior (SINAN) Nuchal Cord: None Prep: Povidone-Iodine (Betadine Anesthesia Type: Epidural Amniotic Fluid Description: Clear Episiotomy Type: None Laceration: 3rd Degree (midline), Perineal Suture type: Vicryl Suture size: 2-0 Placenta: Intact, Spontaneous Cord: 3 Vessels Estimated Blood Loss: 300 Resuscitation Needed: No : Bulb Syringe, Stimulated, Warmed, Warmer Used Provider: Gilson Abarca Score 1 min: 8 Score 5 min: 9 Post Delivery Events: Shoulder Dystocia (Relieved with Chele maneuver and Dave corkscrew maneuver) Second Stage Interventions: Reports: Pushing Effectively, Pushing, Stirrups/Leg Supports Delivery Comments (Free Text/Narrative):: Stage I: Renata Rome was admitted for elective induction of labor. On admission her cervix was dilated to 3 cm. She was GBS negative. She was started on Pitocin for induction of labor. She had artificial rupture membranes with return of clear fluid. She was given an epidural for anesthesia. She continued to progress throughout the day until she got to complete and pushing. Stage II: Patient had delivery of the head and with gentle downward traction attempted to deliver the shoulders but was unsuccessful. Patient was placed in deep Chele position and attempted to deliver the anterior shoulder again but was unsuccessful. I then placed my hand in the posterior vagina and with gentle pressure on the posterior shoulder as well as on the anterior shoulder the infant was rotated in a counterclockwise maneuver using Dave screw maneuver. The anterior shoulder was then able to be delivered with little difficulty. The shoulder dystocia lasted approximately 30 seconds. The right shoulder was the anterior shoulder behind the pubic symphysis. Infant was moving all extremities without difficulty after delivery. On 07/24/2019 she had a normal vaginal delivery of a live male infant at 16:30. Apgars of 8 & 9. Weight of 4130 g (9 lbs 1.7 oz). Length of 21 inches. There was no nuchal cord. Infant was delivered in SINAN position. The cord was doubly clamped and cut by father the . Infant was placed on mother's abdomen. Stage III: She had a spontaneous delivery of an intact placenta in Garcia presentation. Three vessel cord. She was given pitocin and fundal massage. She had a third degree laceration of the perineum with complete tear of the external anal sphincter muscle. The rectal mucosa was intact and the tear on the perineum did not go down to the rectum. The muscle capsule around the external anal sphincter was then grasped using Allis clamps and the muscle capsule was repaired using 2-0 Vicryl repeat. The muscle capsule was repaired using [id number] sutures in the posterior quadrant, then the inferior quadrant, then the superior quadrant and then in the anterior quadrant. At this time the muscle capsule was intact and felt to be fully repaired. The remainder of the laceration was then repaired using 3-0 Vicryl. Mom and baby were stable to recovery. EBL of 300 mL. Brief History: - General Info. Date of Service: 07/24/19. Mother's Due Date: 07/31/19. - Delivery Note. Labor: Induced by ARM, Induced by Oxytocin. Delivery Outcome: Livebirth. Infant Delivery Method: Spontaneous Vaginal Delivery-Single. Presentation: Right Occiput Anterior (SINAN). Nuchal Cord : None. Prep: Povidone-Iodine (Betadine. Anesthesia Type: Epidural. Amniotic Fluid Description: Clear. Episiotomy Type: None. Laceration: 3rd Degree ( midline), Perineal. Suture type: Vicryl. Suture size: 2-0. Placenta: Intact, Spontaneous. Cord: 3 Vessels. Estimated Blood Loss: 300. Resuscitation Needed : No. : Bulb Syringe, Stimulated, Warmed, Warmer Used. Provider: Gilson Abarca. Score 1 min: 8. Score 5 min: 9. Post Delivery Events: Shoulder Dystocia (Relieved with Chele maneuver and Dave corkscrew maneuver). Second Stage Interventions: Reports: Pushing Effectively, Pushing, Stirrups/Leg Supports. Delivery Comments (Free Text/Narrative):: Stage I: Renata Rome was admitted for elective induction of labor. On admission her cervix was dilated to 3 cm. She was GBS negative. She was started on Pitocin for induction of labor. She had artificial rupture membranes with return of clear fluid. She was given an epidural for anesthesia. She continued to progress throughout the day until she got to complete and pushing. Stage II: Patient had delivery of the head and with gentle downward traction attempted to deliver the shoulders but was unsuccessful. Patient was placed in deep Chele position and attempted to deliver the anterior shoulder again but was unsuccessful. I then placed my hand in the posterior vagina and with gentle pressure on the posterior shoulder as well as on the anterior shoulder the was rotated in a counterclockwise maneuver using Dave screw maneuver. The anterior shoulder was then able to be delivered with little difficulty. The shoulder dystocia lasted approximately 30 seconds. The right shoulder was the anterior shoulder behind the pubic symphysis. Infant was moving all extremities without difficulty after delivery. On 07/24/2019 she had a normal vaginal delivery of a live male infant at 16:30. Apgars of 8 & 9. Weight of 4130 g (9 lbs 1.7 oz). Length of 21 inches. There was no nuchal cord. Infant was delivered in SINAN position. The cord was doubly clamped and cut by father the . was placed on mother's abdomen. Stage III: She had a spontaneous delivery of an intact placenta in Garcia presentation. Three vessel cord. She was given pitocin and fundal massage. She had a third degree laceration of the perineum with complete tear of the external anal sphincter muscle. The rectal mucosa was intact and the tear on the perineum did not go down to the rectum. The muscle capsule around the external anal sphincter was then grasped using Allis clamps and the muscle capsule was repaired using 2-0 Vicryl repeat. The muscle capsule was repaired using [id number] sutures in the posterior quadrant, then the inferior quadrant, then the superior quadrant and then in the anterior quadrant. At this time the muscle capsule was intact and felt to be fully repaired. The remainder of the laceration was then repaired using 3-0 Vicryl. Mom and baby were stable to recovery. EBL of 300 mL. Diagnosis: Stroke: No - Discharge Data Discharge Date: 07/25/19 Discharge Disposition: Home, Self-Care 01 Condition: Good - Referral to Home Health Primary Care Physician: Marlon Medrano MD - Discharge Diagnosis/Problem(s) (1) 39 weeks gestation of SNOMED Code(s): 15498343 ICD Code: Z3A.39 - 39 WEEKS GESTATION OF Status: Acute Current Visit: Yes (2) History of herpes genitalis SNOMED Code(s): 804724511 ICD Code: Z86.19 - PERSONAL HISTORY OF OTHER INFECTIOUS AND PARASITIC DISEASES Status: Acute Current Visit: Yes (3) History of HELLP syndrome, currently SNOMED Code(s): 689486920, 031458122 ICD Code: O09.299 - SUPRVSN OF PREG W POOR REPRODCTV OR OBSTET HISTORY, UNSP TRI Status: Acute Current Visit: Yes (4) Vaginal delivery SNOMED Code(s): 580711145 ICD Code: O80 - ENCOUNTER FOR FULL-TERM UNCOMPLICATED DELIVERY Status: Acute Current Visit: Yes (5) Shoulder dystocia during labor and delivery, delivered SNOMED Code(s): 772628116, 993792000 ICD Code: O66.0 - OBSTRUCTED LABOR DUE TO SHOULDER DYSTOCIA Status: Acute Current Visit: Yes (6) Third degree perineal laceration during delivery SNOMED Code(s): 31312584, 309891028 ICD Code: O70.20 - THIRD DEGREE PERINEAL LACERATION DURING DELIVERY, UNSP Status: Acute Current Visit: Yes - Patient Summary/Data Complications: Shoulder dystocia and third-degree laceration Consults: None Hospital Course: Renata Rome was admitted for elective induction of labor. On admission her cervix was dilated to 3 cm. She was GBS negative. She was given pitocin for augmentation. She had artificial rupture of membranes with clear fluid. She was given an epidural for anesthesia. She progressed to complete and began pushing. Patient was able to deliver the head without much difficulty but the shoulders were unable to be delivered with gentle traction. A shoulder dystocia was called at this time. Patient was placed in deep Chele position and the infant was able to be delivered after performing Dave screw maneuver. The length of the shoulder dystocia lasted approximately 30 seconds. On 07/24/2019 she had a normal vaginal delivery of a live male at 16:30. Apgars of 8 and 9. Weight of 4130 g (9 pounds 1.7 ounces). Her course was uneventful. Her pain was well controlled and she had minimal lochia. She was ambulating, tolerating a regular diet and voiding normally. She was breast-feeding with pumping afterwards and supplementation with formula as needed with minimal difficulty. She was afebrile and her hematocrit was 39.3 on admission. She desired to be discharged home on the afternoon of PPD # 1. Her blood type is O+. - Patient Instructions Diet: Regular Diet as Tolerated Activity: Apply Ice, As Tolerated Activity, Other: Nothing in the vagina for 6 weeks Driving: May Drive Today Showering/Bathing: May Shower Notify Provider of: Fever, Increased Pain, Swelling and Redness, Drainage, Nausea and/or Vomiting Other/Special Instructions: Please contact your physician's office if you have heavy vaginal bleeding enough to soak a pad in less than an hour for several hours. Monitor for any signs of an infection in the breasts with severe pain or redness of the breast. Monitor for any signs of constipation. You may use Colace, senna, milk of magnesia and magnesium citrate as needed to ensure that you do not have any constipation with your stools. You want your stools to be the consistency of toothpaste and not having to strain significantly with a bowel movement. If you have any concerns please contact your physicians office. - Discharge Plan *PRESCRIPTION DRUG MONITORING PROGRAM REVIEWED*: Not Applicable *COPY OF PRESCRIPTION DRUG MONITORING REPORT IN PATIENT WINNIE: Not Applicable Home Medications: Home Meds 147/Iron/Folic Acid [Azesco Tablet] 1 tab PO DAILY 12/17/18 [History] Calcium Carbonate [Calcium] 500 mg PO DAILY 07/24/19 [History] Ferrous Sulfate [Iron] 325 mg PO DAILY 07/24/19 [History] Acetaminophen [Tylenol] 650 mg PO Q6H PRN tablet 07/25/19 [Rx] Benzocaine/Menthol [Dermoplast Pain Relief [place]] 1 spray TOP ASDIRECTED PRN canister 07/25/19 [Rx] Docusate Sodium [Colace] 100 mg PO BID cap 07/25/19 [Rx] Hydrocortisone Acetate [Anucort-HC] 25 mg RECTAL BID PRN supp 07/25/19 [Rx] Ibuprofen [Motrin] 600 mg PO Q6H PRN tablet 07/25/19 [Rx] Magnesium Hydroxide [Milk of Magnesia] 30 ml PO BEDTIME cup 07/25/19 [Rx] witch Sandra [Tucks] 1 pad TOP ASDIRECTED PRN pad 07/25/19 [Rx] Patient Handouts: Care of a Perineal Tear, Care After Vaginal Delivery Referrals: Marlon Medrano MD [Primary Care Provider] - (Follow-up in 1 week for routine care after third-degree laceration with delivery or earlier as needed.) - Discharge Summary/Plan Comment DC Time >30 min.: No - Patient Data Vitals - Most Recent: Last Vital Signs Temp 36.7 C 07/25/19 03:31 Pulse 70 07/25/19 03:31 Resp 16 07/25/19 03:31 BP 120/81 07/25/19 03:31 Pulse Ox 98 07/25/19 03:31 Weight - Most Recent: 91.172 kg I&O - Last 24 hours: Intake & Output 07/24/19 07/25/19 07/25/19 22:59 06:59 14:59 Intake Total 4100 Balance 4100 Lab Results - Last 24 hrs: Laboratory Results - last 24 hr 07/24/19 07/24/19 Range/Units 08:20 08:20 RPR Non-reactive (NONREACTIVE) Blood Type O POSITIVE Gel Antibody Screen Negative Med Orders - Current: Current Medications Acetaminophen (Tylenol) 650 mg PO Q6H PRN PRN Reason: mild pain or fever Last Admin: 07/25/19 03:34 Dose: 650 mg Benzocaine/Menthol (Dermoplast Pain Relief [place]) 0 gm TOP ASDIRECTED PRN PRN Reason: Perineal Comfort Measure Last Admin: 07/24/19 18:59 Dose: 1 canister Calcium Carbonate/Glycine (Tums) 1,000 mg PO Q4H PRN PRN Reason: Indigestion Last Admin: 07/25/19 03:33 Dose: 1,000 mg Docusate Sodium (Colace) 100 mg PO BID RADHA Last Admin: 07/25/19 08:24 Dose: 100 mg Hydrocortisone Acetate (Anucort-Hc) 25 mg RECTAL BID PRN PRN Reason: Hemorrhoid pain Oxytocin/Lactated Ringer's (Pitocin In Lr 10 Units/1,000 Ml) 10 unit in 1,000 mls @ 100 mls/hr IV TITRATE RADHA; Protocol Ibuprofen (Motrin) 600 mg PO Q6H PRN PRN Reason: Mild pain or fever Last Admin: 07/25/19 01:10 Dose: 600 mg Magnesium Hydroxide (Milk Of Magnesia) 30 ml PO BEDTIME RADHA Last Admin: 07/24/19 20:43 Dose: 30 ml Prenat Multivit/Cognos Developer/Iron/Folic Ac ( Plus Iron) 1 each PO DAILY RADHA Last Admin: 07/25/19 08:24 Dose: 1 each Witch Sandra (Tucks) 1 pad TOP ASDIRECTED PRN PRN Reason: Perineal Comfort Measure Last Admin: 07/24/19 18:59 Dose: 1 canister Discontinued Medications Bupivacaine HCl (Sensorcaine-Mpf 0.25%) 10 ml .ROUTE .STK-MED ONE Stop: 07/25/19 00:01 Diphtheria/Tetanus/Acell Pertussis (Adacel) 0.5 ml IM .ONCE ONE Stop: 07/25/19 04:20 Last Admin: 07/25/19 06:28 Dose: 0.5 ml Ephedrine Sulfate (Ephedrine Sulfate) 5 mg IVPUSH ASDIRECTED PRN PRN Reason: Hypotension Fentanyl (Sublimaze) 100 mcg EPIDUR Q3H PRN PRN Reason: Pain Last Admin: 07/24/19 11:17 Dose: 100 mcg Fentanyl/Bupivacaine HCl (Fentanyl/Bupivacaine/Ns 2 Mcg-0.125% 100 Ml) 100 ml EPIDUR ASDIRECTED RADHA Last Admin: 07/24/19 11:18 Dose: 100 ml Lactated Ringer's (Ringers, Lactated) 1,000 mls @ 100 mls/hr IV ASDIRECTED RADHA Last Admin: 07/24/19 13:37 Dose: 100 mls/hr Oxytocin/Lactated Ringer's (Pitocin In Lr 10 Units/1,000 Ml) 10 unit in 1,000 mls @ 12 mls/hr IV TITRATE RADHA; Protocol Last Titration: 07/24/19 12:52 Dose: 8 munits/min, 48 mls/hr Oxytocin/Lactated Ringer's (Pitocin In Lr 10 Units/1,000 Ml) 10 unit in 1,000 mls @ 100 mls/hr IV .CONTINUOUS RADHA Phenylephrine HCl 1 mg/ Sodium (Chloride) 10.1 mls @ 1 mls/sec IV TITRATE RADHA; Protocol Nalbuphine HCl (Nubain) 10 mg IVPUSH Q2H PRN PRN Reason: Pain Ondansetron HCl (Zofran) 4 mg IVPUSH Q4H PRN PRN Reason: Nausea/Vomiting Ondansetron HCl (Zofran) 4 mg IVPUSH ONETIME PRN PRN Reason: Nausea/Vomiting Sodium Chloride (Saline Flush) 10 ml FLUSH ASDIRECTED PRN PRN Reason: Keep Vein Open
[2019-07-25] MEDS: Magnesium Hydroxide 400 MG/5 ML Susp 30 ML Cup PO SCH (10:30)
[2019-07-25] MEDS: Witch Hazel Medicated Pads 40/Jar TOP PRN (10:36)
[2019-07-25] MEDS: Benzocaine/Menthol 20%-0.5% Spray 56 GM Canister TOP PRN (10:37)
== END 2019-07-25 17:15 | disposition home or self-care (01) | DRG 768 ==
LOC: JD.OB 07-24 06:51 → OBSVTOIN 07-24 16:30 → JD.OB 07-24 16:55
PROVIDERS: ADMIT Obstetrics & Gynecology; ATTEND Obstetrics & Gynecology
PROC: 10E0XZZ Delivery of Products of Conception, External Approach (ICD-10-PCS; principal; 2019-07-24)
PROC: 0DQR0ZZ Repair Anal Sphincter, Open Approach (ICD-10-PCS; 2019-07-24)
PROC: 10907ZC Drainage of Amniotic Fluid, Therapeutic from Products of Conception, Via Natural or Artificial Opening (ICD-10-PCS; 2019-07-24)
PROC: 3E033VJ Introduction of Other Hormone into Peripheral Vein, Percutaneous Approach (ICD-10-PCS; 2019-07-24)
PROC: 3E0R3BZ Introduction of Anesthetic Agent into Spinal Canal, Percutaneous Approach (ICD-10-PCS; 2019-07-24)
PROC: 00HU33Z Insertion of Infusion Device into Spinal Canal, Percutaneous Approach (ICD-10-PCS; 2019-07-24)
DX: O66.0 Obstructed labor due to shoulder dystocia (principal); Z37.0 Single live birth; O70.20 Third degree perineal laceration during delivery, unspecified; Z3A.39 39 weeks gestation of pregnancy
CPT/HCPCS: 01967; 36415; 51702; 59025; 59409; 85025; 86592; 86850; 86900; 86901; 90471; 90715; A9270-GY; G0010; J2590; J3010; J3490; J7120

== ENCOUNTER 2020-11-02 15:40 | Emergency (ER) | payer OTHER, BC ==
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
== END 2020-11-02 17:17 | disposition home or self-care (01) ==
LOC: JD.ED 15:40
DX: S90.121A Contusion of right lesser toe(s) without damage to nail, initial encounter (principal); S60.812A Abrasion of left wrist, initial encounter; S60.312A Abrasion of left thumb, initial encounter; S80.211A Abrasion, right knee, initial encounter; V49.40XA Driver injured in collision with unspecified motor vehicles in traffic accident, initial encounter; Y92.410 Unspecified street and highway as the place of occurrence of the external cause
CPT/HCPCS: 99282; 99284

== ENCOUNTER 2021-01-18 10:22 | Emergency (ER) | payer BC, OTHER ==
[2021-01-18] MEDS ORDERED: Amoxicillin/Clavulanate K 875-125 MG Tab PO ONE (11:26)
[2021-01-18] MEDS ORDERED: Ketorolac 60 MG/2 ML SDV IM ONE (11:27)
--- NOTE | 2021-01-18 12:28 | EDM.PDOC ---
ED HPI GENERAL MEDICAL PROBLEM - General Chief Complaint: Bite:Animal, Insect Stated Complaint: RT HAND INJURY\BITTEN BY DOG Time Seen by Provider: 01/18/21 11:04 Source of Information: Reports: Patient, RN Notes Reviewed History Limitations: Reports: No Limitations - History of Present Illness INITIAL COMMENTS - FREE TEXT/NARRATIVE: Is a 35-year-old female presenting to the emergency department with complaints of dog bite to her right index finger. Patient reports that she was trying to get her dog to come home, therefore she was hanging a piece of meat over the fence. Her neighbors dog excellently bit her finger while attempting to get the meat. The dog is up-to-date on vaccinations. Patient is up-to-date on tetanus vaccines. Right Finger-Ring Pain Score (Numeric/FACES): 9 - Related Data Allergies Allergy/AdvReac Type Severity Reaction Status Date / Time No Known Allergies Allergy Verified 01/18/21 10:46 Home Meds: Home Meds Acetaminophen [Tylenol] 650 mg PO Q6H PRN tablet 07/25/19 [Rx] Ibuprofen [Motrin] 600 mg PO Q6H PRN tablet 07/25/19 [Rx] Amoxicillin/Clavulanate K [Augmentin 875-125 MG] 1 tab PO BID 7 Days #13 tablet 01/18/21 [Rx] FLUoxetine [PROzac] 40 mg PO DAILY 01/18/21 [History] Hydrocodone/Acetaminophen [Hydrocodone-Acetamin 5-325 mg] 1 each PO Q4H PRN #12 tablet 01/18/21 [Rx] Past Medical History - Past Health History Medical/Surgical History: Denies Medical/Surgical History HEENT History: Reports: Impaired Vision, Other (See Below) Other HEENT History: Wearing contacts Genitourinary History: Reports: STD Other Genitourinary History: Genital Herpes 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 DIRECTOR History: Reports: , Other (See Below) Other SENIOR DIRECTOR History: HELLP with 1st baby, Psychiatric History: Reports: Depression 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 ED EXAM, ANIMAL BITE - Physical Exam Exam: See Below Exam Limited By: No Limitations General Appearance: Alert, WD/WN, No Apparent Distress Respiratory/Chest: No Respiratory Distress, Lungs Clear, Normal Breath Sounds, No Accessory Muscle Use, Chest Non-Tender Cardiovascular: Normal Peripheral Pulses, Regular Rate, Rhythm, No Edema, No Gallop, No JVD, No Murmur, No Rub Skin Exam: Other (1 cm slightly gaping laceration to the pad of the right index finger. Small amount of bleeding. Small blood blister to the lateral aspect of the right index fingernail and superficial laceration to the medial aspect of the fingernail) Course - Vital Signs Last Recorded V/S: Last Vital Signs Temp 98.7 F 01/18/21 10:39 Pulse 82 01/18/21 10:39 Resp 16 01/18/21 10:39 BP 102/70 01/18/21 10:39 Pulse Ox 96 01/18/21 10:39 - Orders/Labs/Meds Orders: Active Orders 24 hr Category Date Time Status Fingers Fourth Digit Rt F8 [CR] Stat Exams 01/18/21 11:27 Taken Meds: Medications Discontinued Medications Generic Name Dose Route Start Last Admin Trade Name Williamsq PRN Reason Stop Dose Admin Amoxicillin/Clavulanate Potassium 1 tab 01/18/21 11:26 01/18/21 11:36 Amoxicillin/Clavulanate K 875-125 Mg Tab PO 01/18/21 11:27 1 tab ONETIME ONE Administration Ketorolac Tromethamine 60 mg 01/18/21 11:27 01/18/21 11:36 Ketorolac 60 Mg/2 Ml Sdv IM 01/18/21 11:28 60 mg ONETIME ONE Administration - Re-Assessments/Exams Free Text/Narrative Re-Assessment/Exam: Patient is a 35-year-old female presenting to the emergency department with complaints of dog bite to her right index finger. She was holding a piece of meat over the fence when the neighbors dog jumped up to grab it, causing laceration. The dog is up-to-date on his vaccinations. She is up-to-date on her tetanus vaccine. On exam, there is a 1 cm slightly Gaping laceration to the pad of the right index finger. Small amount of active bleeding. I have ordered x-rays of the finger. We will soak it in Betadine. I have ordered first dose of Augmentin and injection of Toradol to be given. 01/18/21 12:25 X-ray of the finger shows no evidence of fracture. Wound was cleansed with Betadine and saline. Antibiotic ointment applied and wrapped in nonstick gauze and Coban. No wound closure was done as it is not significantly gaping and it will allow for drainage being that it is a dog bite. Prescription has been sent for Augmentin and [place] for pain. Discussed signs of infection that the patient should watch for and seek medical treatment should they occur. I would like her to follow-up in the clinic on or Sunday of this week to have the wound rechecked. She verbalized understanding of this. Discharge instructions as documented. Departure - Departure Time of Disposition: 12:26 Disposition: Home, Self-Care 01 Condition: Good Clinical Impression: Dog bite Qualifiers: Encounter type: initial encounter Qualified Code(s): W54.0XXA - Bitten by dog, initial encounter - Discharge Information *PRESCRIPTION DRUG MONITORING PROGRAM REVIEWED*: Yes *COPY OF PRESCRIPTION DRUG MONITORING REPORT IN PATIENT WININE: No Prescriptions: Amoxicillin/Clavulanate K [Augmentin 875-125 MG] 1 tab PO BID 7 Days #13 tablet Hydrocodone/Acetaminophen [Hydrocodone-Acetamin 5-325 mg] 1 each PO Q4H PRN #12 tablet PRN Reason: Pain Instructions: Animal Bite, Adult, [id number] Referrals: Casey Madden, DOCUMENT SPECIALIST [Primary Care Provider] - Additional Instructions: Take the Augmentin as prescribed. Next dose will be this evening. Take Tylenol ibuprofen routinely for pain. For pain not relieved by this, a prescription for hydrocodone with Tylenol has been provided. Take this only as prescribed. Do not work or drive for 12 hours after taking this as it can be sedating. Ensure that you are not taking in more than 4000 mg of Tylenol from all sources in a 24-hour period. Soak the finger in soapy water 2-3 times daily. Apply antibiotic ointment and wrap and Band-Aid. Watch for signs of infection including increased redness, swelling, or purulent drainage. If these should occur, you should be evaluated immediately. Schedule follow-up appointment in 2 to 3 days in the clinic to have the wound rechecked. Return to ER as needed. Sepsis Event Note (ED) - Evaluation Sepsis Screening Result: No Definite Risk - Focused Exam Vital Signs: Vital Signs Temp Pulse Resp BP Pulse Ox 01/18/21 10:39 98.7 F 82 16 102/70 96 - My Orders Last 24 Hours: My Active Orders 01/18/21 11:27 Fingers Fourth Digit Rt F8 [CR] Stat - Assessment/Plan Last 24 Hours: My Active Orders 01/18/21 11:27 Fingers Fourth Digit Rt F8 [CR] Stat
--- NOTE | 2021-01-18 12:51 | CR ---
Right fourth finger: 4 view centered to the right fourth finger were obtained. Comparison: No prior finger or hand exam is available. Slight soft tissue swelling is noted. No fracture, dislocation or other bony abnormality is appreciated. Impression: 1. Slight soft tissue swelling. 2. No acute bony abnormality is seen. Diagnostic code #2
== END 2021-01-18 12:40 | disposition home or self-care (01) ==
LOC: JD.ED 10:22
DX: S61.250A Open bite of right index finger without damage to nail, initial encounter (principal); W54.0XXA Bitten by dog, initial encounter
CPT/HCPCS: 73140; 96372; 99283; A9270; J1885